=== PATIENT | female | born 2000 | race Two or more races ===

== ENCOUNTER → 2024-08-25 | Outpatient (CLI) | payer OTHER, MEDICAID, SELFPAY ==
[2024-08-25 13:04] LABS: Misc Send Out* See Sep Rpt
[2024-08-25 14:01] LABS: Follicle Stimulating Hormone 6.18 mIU/mL (See Note)
[2024-09-01 07:19] LABS: Estradiol, Ultrasensitive* 76 pg/mL
== END | disposition home or self-care (01) ==
PROVIDERS: PCP Physician Assistant; Referring Provider Specialist; Visit Provider Specialist
DX: Z30.09 Encounter for other general counseling and advice on contraception (principal)
CPT/HCPCS: 36415; 82397; 82670; 83001

== ENCOUNTER → 2025-01-01 | Outpatient (CLI) | payer OTHER, MEDICAID, SELFPAY ==
[2025-01-01 08:44] LABS: Beta HCG,Quantitative 67 mIU/mL (<5.0)
[2025-01-12 06:55] LABS: Progesterone,LC/MS* 38.8 ng/mL
== END | disposition home or self-care (01) ==
LOC: COPL 07:27
PROVIDERS: PCP Specialist; Referring Provider Specialist; Visit Provider Specialist
DX: Z32.00 Encounter for pregnancy test, result unknown (principal)
CPT/HCPCS: 36415; 84144; 84702

== ENCOUNTER → 2025-01-05 | Outpatient (CLI) | payer OTHER, SELFPAY ==
[2025-01-05 13:12] LABS: Beta HCG,Quantitative 13 mIU/mL (<5.0)
== END | disposition home or self-care (01) ==
LOC: COPL 12:24
PROVIDERS: Referring Provider Specialist; Visit Provider Specialist
DX: Z32.01 Encounter for pregnancy test, result positive (principal)
CPT/HCPCS: 36415; 84702